=== PATIENT | male | born 1965 | race Caucasian/White ===

== ENCOUNTER 2019-11-18 23:51 | Emergency (ER) | payer OTHER ==
[~2019-11-18] VITALS: Ht 190.5 cm; Wt 127.0 kg
[~2019-11-18 23:51] MED LIST: ATORVASTATIN CA10 MG PO; GLUCOSAMINE-CH1 EA19 PO; KRILL OIL 3001 EACH PO; LORATADINE10 MG PO; MELOXICAM15 MG PO; NORCO 7.5-3251 EACH PO; ULTRAM50 MG PO
[2019-11-19] MEDS ORDERED: ALLOPURINOL300 MG PO (00:03)
== END 2019-11-19 01:35 | disposition home or self-care (01) ==
LOC: ED 23:51
DX: T78.3XXA Angioneurotic edema, initial encounter (principal); J30.9 Allergic rhinitis, unspecified; E78.00 Pure hypercholesterolemia, unspecified; Z79.899 Other long term (current) drug therapy
CPT/HCPCS: 96374; 96375; 99283-25; J1200; J2930

== ENCOUNTER 2021-10-05 09:43 | Emergency (ER) | payer OTHER ==
[~2021-10-05] VITALS: Ht 190.5 cm; Wt 127.0 kg
[~2021-10-05 09:43] MED LIST changes: +ALLOPURINOL300 MG PO
== END 2021-10-05 11:54 | disposition home or self-care (01) ==
LOC: ED 09:43
DX: S70.02XA Contusion of left hip, initial encounter (principal); W11.XXXA Fall on and from ladder, initial encounter
CPT/HCPCS: 73502; 99283-25

== ENCOUNTER 2024-12-11 07:24 | Day surgery (SDC) | payer OTHER ==
[~2024-12-11] VITALS: Ht 190.5 cm; Wt 122.7 kg
[~2024-12-11 07:24] MED LIST changes: +CEFAZOLIN SODIUM 2 GM in SODIUM CHLORIDE 0.9% 100 ML IV SCH; +IBLOOD GLUCOSE TEST STRIP 1 EA TEST VI PRN; +LACTATED RINGER'S 1,000 ML IV SCH; +LIDOCAINE HCL 1% 5 ML SDV INJ ONE; +MIDAZOLAM HCL 5 MG/5 ML VIAL IV PRN; +fentaNYL citrate 100 MCG/2 ML VIAL IV PRN
[2024-12-11 07:36] VITALS: BP 127/86
[2024-12-11] MEDS ORDERED: ALLER-TEC10 MG PO (07:37)
[2024-12-11] MEDS ORDERED: SUDAFED 12-HOU120 MG PO (07:38)
[2024-12-11] MEDS ORDERED: MULTI VITAMIN1 EACH PO (07:38)
[2024-12-11] MEDS ORDERED: TURMERIC500 M3 PO (07:38)
[2024-12-11] MEDS ORDERED: MIDAZOLAM HCL 5 MG/5 ML VIAL ONE (08:23)
[2024-12-11] MEDS ORDERED: fentaNYL citrate 100 MCG/2 ML VIAL ONE (08:23)
--- NOTE | 2024-12-11 09:27 | NUR ---
12/11/24 0927 Zina Muhammad 0914- PT PRESENTS TO PACU, LEFT LATERAL POSITION, PASSING GAS, AWAKE OFF AND ON. BREATHING EVEN AND NON LABORED ON 2L O2 PER NC. LR INFUSING TO RW IV. ABD SOFT, NON DISTENDED, ENCOURAGED TO CONTINUE PASSING GAS. ALL MONITORS IN PLACE. 0921- PT MOVED TO ROOM AIR AT THIS TIME, RESTING OFF AND ON BUT WAKES ON OWN. PT ASKS QUESTIONS, REORIENTED TO TIME AND PLACE. WILL CONTINUE TO MONITOR.
[2024-12-11 09:53] VITALS: BP 121/84
--- NOTE | 2024-12-12 07:59 | OR ---
[facility] [address], [place] [address] Signed DATE OF OPERATION: 12/11/2024 SURGEON: Ann Marie Jaffe MD PREOPERATIVE DIAGNOSES: 1. Family history of colon cancer (father). 2. History of multiple polyps in 2021, [facility]. POSTOPERATIVE DIAGNOSIS: Sigmoid diverticulosis. No evidence of polyps. PROCEDURE: Total colonoscopy to cecum. ANESTHESIA: Intravenous sedation fentanyl 150 mcg and Versed 10 mg. INDICATION: This 59-year-old white man is a patient of EVITA Alonzo. He underwent colonoscopy in 2021 where he was found to have several adenomatous polyps. This was in [place] by Dr. Romeo. He does have family history of colon cancer in his father who of the disease. He is admitted at this time to undergo surveillance colonoscopy based on his prior history of polyps and family history. He understands the risk of bleeding, infection, and perforation related to colonoscopy and wished to proceed. FINDINGS: The prep was good. Complete and full intubation of the cecum was accomplished. He had numerous diverticula of the sigmoid and left colon, but no evidence of polyps, colitis, or other abnormality. DESCRIPTION OF PROCEDURE: The patient was brought to the endoscopy suite and placed in lateral decubitus position, given intravenous sedation to the point of slurred speech and nystagmus. Digital rectal examination was normal. An Olympus video colonoscope was passed in the rectum and manipulated through the colon noting numerous diverticula of the sigmoid and left colon. Scope was ultimately advanced to the cecum. The ileocecal valve and appendiceal orifice were normal. Scope was carefully withdrawn from that point and examination throughout showed no sign of abnormality other than diverticula as previously noted. Retroflexed view of the rectum Electronically Signed By: ANN MARIE JAFFE MD 12/12/24 0759 PATIENT NAME: KAREN GARCIA OPERATIVE REPORT DATE OF : 61 REPORT #: [id number] PHYSICIAN: ANN MARIE JAFFE MD PCP: ROCKY RUANO REPORT IS CONFIDENTIAL AND NOT TO BE RELEASED WITHOUT AUTHORIZATION [facility] [address] [place] [id number] Signed was normal. The scope was removed. The patient was taken to the recovery room in good condition. CONCLUDING DIAGNOSIS: Diverticulosis. No evidence of polyps. PLAN: Recommend repeat colonoscopy in 5 years based on family history, sooner if symptoms should develop. Recommend also high-fiber diet. MD GELACIO Melvin/MODL /[id number] cc: EVITA Alonzo Copies: ROCKY RUANO ~ Electronically Signed By: ANN MARIE JAFFE MD 12/12/24 0759 PATIENT NAME: KAREN GARCIA OPERATIVE REPORT DATE OF : 61 REPORT #: [id number] PHYSICIAN: ANN MARIE JAFFE MD PCP: ROCKY RUANO REPORT IS CONFIDENTIAL AND NOT TO BE RELEASED WITHOUT AUTHORIZATION
== END 2024-12-11 10:05 | disposition home or self-care (01) ==
LOC: DS 07:24
PROVIDERS: ATTEND Surgery
PROC: 0DJD8ZZ Inspection of Lower Intestinal Tract, Via Natural or Artificial Opening Endoscopic (ICD-10-PCS; principal; 2024-12-11 08:30)
DX: Z12.11 Encounter for screening for malignant neoplasm of colon (principal); K57.30 Diverticulosis of large intestine without perforation or abscess without bleeding; Z86.0100 Personal history of colon polyps, unspecified; Z80.0 Family history of malignant neoplasm of digestive organs; Z96.652 Presence of left artificial knee joint
CPT/HCPCS: 99153; G0500; J0688; J2250; J3010; J7121